=== PATIENT | female | born 1995 | race African-American/Black ===

== ENCOUNTER 2024-05-12 13:46 | Outpatient (CLI) | payer BC, SELFPAY ==
[2024-05-14 23:24] LABS: HPV Source Cervix; HPV, High Risk by TMA Not Detected
== END 2024-05-12 13:47 | disposition home or self-care (01) ==
PROVIDERS: PCP Registered Nurse; Visit Provider Registered Nurse
DX: Z13.220 Encounter for screening for lipoid disorders (principal); Z13.1 Encounter for screening for diabetes mellitus; Z11.51 Encounter for screening for human papillomavirus (HPV); Z12.4 Encounter for screening for malignant neoplasm of cervix
CPT/HCPCS: 80061; 82947; 87624; 87625; 88141; 88142

== ENCOUNTER 2024-07-19 17:46 | Outpatient (CLI) | payer BC, SELFPAY | END 2024-07-19 17:47 | disposition home or self-care (01) | LOC: NFLDREF 07-21 02:15 | PROVIDERS: PCP Registered Nurse; Referring Provider Registered Nurse; Visit Provider Physician Assistant | DX: N39.0 Urinary tract infection, site not specified (principal); B95.7 Other staphylococcus as the cause of diseases classified elsewhere | CPT/HCPCS: 87086; 87186 ==

== ENCOUNTER 2024-12-15 13:55 | Outpatient (CLI) | payer BC, SELFPAY ==
--- NOTE | 2024-12-15 14:00 | CRLHL7_ITS ---
For Patients: As a result of the Cures Act, medical imaging exams and procedure reports are released immediately into your electronic medical record. You may view this report before your referring provider. If you have questions, please contact your health care provider. OB ULTRASOUND INDICATION: Dating and viability. TECHNIQUE: Real time grayscale imaging of the fetus was performed. Transvaginal. Transvaginal imaging performed to better demonstrate the endometrium and ovaries. LMP: 09/17/2024 (unsure). JUVE by LMP: 06/24/2025. GA: 12 w, 5 d. Previous US: No. CRL: 5 cm. 11 w 5 d. JUVE: 07/01/2025. FHR: 173 BPM. Gestational sac: 5.1 cm. Appears within normal limits. Yolk sac: 4.8 mm. Appears within normal limits. Right ovary: Within normal limits. 3.4 x 2.1 x 2.5 cm. Left ovary: Within normal limits. 4.1 x 2.2 x 3 cm. CL. IMPRESSION: 1. Single living intrauterine measures 11 weeks 5 days with a sonographic due date of 07/01/2025. 2. Small subchorionic hemorrhage measures 11.3 x 1.0 x 1.5 cm. 3. Corpus luteal cyst left ovary. Ryan Kaur M.D. Diagnostic Radiologist [email or web address] MINDI/nayely adler/Dictated by: Ryan Kaur MD @ 12/15/2024 3:12:00 PM (Electronically Signed)
== END 2024-12-15 13:56 | disposition home or self-care (01) ==
LOC: US 13:57
PROVIDERS: Visit Provider Registered Nurse
DX: O20.9 Hemorrhage in early pregnancy, unspecified (principal); O34.11 Maternal care for benign tumor of corpus uteri, first trimester; N83.12 Corpus luteum cyst of left ovary; Z3A.11 11 weeks gestation of pregnancy; Z34.90 Encounter for supervision of normal pregnancy, unspecified, unspecified trimester; D64.9 Anemia, unspecified
CPT/HCPCS: 76801; 82728; 83021; 83540; 83550; 86592; 86703; 86704; 86706; 86762; 86787; 86803; 86850; 86900; 86901; 87086; 87340; 87491; 87591